=== PATIENT | female | born 1970 | race Caucasian/White ===

== ENCOUNTER → 2019-11-08 06:49 | Outpatient (CLI) | payer BC, SELFPAY ==
--- NOTE | ~2019-11-08 | MM_ITS ---
EXAMINATION: MM screening sia BI w logan HISTORY: Screening mammogram TECHNIQUE: Craniocaudal and mediolateral oblique 3-D tomosynthesis images were obtained and synthetic 2-D images were generated. CAD analysis was submitted and interpreted. COMPARISON: 04/24/2018 bilateral diagnostic digital mammogram and complete bilateral breast ultrasound 04/19/2018, 03/29/2017 bilateral digital screening mammogram examinations BREAST PARENCHYMAL COMPOSITION: The breasts are heterogeneously dense, which may obscure small masses . FINDINGS: There is a 2 cm partially obscured mass in the upper mid left breast. Diagnostic left mammo gram and left breast ultrasound examination are recommended. There is no evidence of suspicious mass, calcification, or architectural distortion to suggest malignancy in either breast. There has been no suspicious interval change. IMPRESSION: 1. 2 cm mass in the upper central left breast slightly lateral to mid sagittal plane 2. Diagnostic left mammogram and left breast ultrasound examination are recommended BI-RADS Category 0: Incomplete: Needs additional imaging evaluation. Reviewed, dictated and finalized at location A. [employer] IMPRESSION: 1. 2 cm mass in the upper central left breast slightly lateral to mid sagittal plane 2. Diagnostic left mammogram and left breast ultrasound examination are recomme nded BI-RADS Category 0: Incomplete: Needs additional imaging evaluation.
== END ==
DX: Z12.31 Encounter for screening mammogram for malignant neoplasm of breast (principal); R92.8 Other abnormal and inconclusive findings on diagnostic imaging of breast
CPT/HCPCS: 77063; 77067

== ENCOUNTER → 2019-11-22 08:28 | Outpatient (CLI) | payer BC, SELFPAY ==
--- NOTE | ~2019-11-22 | MMUS_ITS ---
EXAMINATION: MM diagnostic mammo unilat LT, US breast LT limited HISTORY: Follow-up left breast mass TECHNIQUE: Additional 3-D tomosynthesis images of the left breast were performed and synthetic 2-D im ages were generated. CAD analysis was submitted and interpreted. High resolution breast ultrasound wa s performed. COMPARISON: 03/29/2017 FINDINGS: MAMMOGRAPHIC FINDINGS: Breast composed of scattered areas of fibroglandular density. There is a mass centered in the upper c entral aspect of the left breast anteriorly measuring approximately 2.3 cm on medial lateral view. No suspicious calcifications or architectural distortion. ULTRASOUND: Left breast ultrasound: There are multiple cysts of the left breast, largest at 12:00, 4 cm from the nipple measuring 2.5 x 1 .2 x 2.2 cm corresponding to the mass seen on mammogram. No suspicious masses are identified by ultra sound to suggest malignancy. IMPRESSION: 1. No evidence for malignancy in the left breast. 2.5 cm simple cyst corresponds to the mass seen on mammography. 2. Routine yearly screening mammogram and regular clinical breast examination are recommended. BI-RADS Category 2: Benign finding(s). Reviewed, dictated and finalized at location A. IMPRESSION: 1. No evidence for malignancy in the left breast. 2.5 cm simple cyst correspond s to the mass seen on mammography. 2. Routine yearly screening mammogram and regular clinical breast examination a re recommended. BI-RADS Category 2: Benign finding(s).
== END ==
DX: R92.8 Other abnormal and inconclusive findings on diagnostic imaging of breast (principal)
CPT/HCPCS: 76642; 77065

== ENCOUNTER 2020-02-14 13:32 | Outpatient (CLI) | payer BC, SELFPAY ==
--- NOTE | ~2020-02-14 | US_ITS ---
EXAMINATION: US FNA w image guidance DATE: 02/14/2020 14:51 INDICATION: Right thyroid nodule TECHNIQUE: A time-out was performed to verify the patient's name, date of , and procedure to be performed . The procedure and its benefits and risks were discussed with the patient. Risks specifically discus sed included bleeding and infection. The patient understood the risks and agreed to proceed. The neck was prepped and draped in the usual sterile manner. 3 mL 1% lidocaine was used for local anesthesia . 6 passes were made with a 25G needle into the lesion. Appropriate needle location was documented with continuous sonographic guidance. The specimens were passed to the creative technologist in the room. A sterile bandage was applied. There were no immediate complications. FINDINGS: Grayscale ultrasound images demonstrate biopsy needles advanced into a 1.3 x 0.6 cm hypoechoic nodule with indistinct margins at the deep inferior right thyroid lobe. IMPRESSION: 1. Successful ultrasound-guided fine needle aspiration of a 1.3 cm solid right thyroid nodule of con cern. Reviewed, dictated and finalized at location A. IMPRESSION: 1. Successful ultrasound-guided fine needle aspiration of a 1.3 cm solid right thyroid nodule of concern.
== END 2020-02-14 13:33 | disposition home or self-care (01) ==
PROVIDERS: PCP Internal Medicine; Visit Provider Physician Assistant Medical
DX: E04.1 Nontoxic single thyroid nodule (principal)
CPT/HCPCS: 10005; 88108; 88173; 88305